=== PATIENT | male | born 1960 | race Two or more races ===

== ENCOUNTER 2017-07-21 17:43 | Emergency (ER) | payer OTHER ==
[~2017-07-21] VITALS: Ht 175.3 cm; Wt 63.5 kg
[2017-07-21 18:26] VITALS: BP 136/76
[2017-07-21] MEDS ORDERED: IBUPROFEN 400 MG TABLET ONE (19:51)
[2017-07-21] MEDS ORDERED: IBUPROFEN 400 MG TABLET PO ONE (20:00)
--- NOTE | 2017-07-21 20:23 | NUR ---
Patient discharged to home in stable condition. Written and verbal after care instructions along with Rx given. Patient verbalizes understanding of instruction. VSS upon discharge. pt ambulated with steady gait out of ER
== END 2017-07-21 19:56 | disposition home or self-care (01) ==
LOC: ER 17:48
DX: B02.9 Zoster without complications (principal)
CPT/HCPCS: 99283; A4606; Z7610